=== PATIENT | female | born 1995 | race Caucasian/White ===

== ENCOUNTER 2019-01-23 14:46 | Emergency (ER) | payer OTHER ==
[~2019-01-23] VITALS: Ht 160 cm; Wt 74.8 kg
[~2019-01-23 14:46] MED LIST: BACTRIM DS TAB1 EACH PO; BACTROBAN NASAL1 GM NS; DEPO; DEPO-PROVE150 MG/1 M; HIBICLENS120 ML TP; HYDROCODONE-AP1 EAC6 PO; LANTUS100 UNIT/M SUBQ; NOVOLOG100 UNIT/1; NOVOLOG100 UNIT/1 SUBQ; PENICILLIN V P500 MG PO; TYLENOL325 MG PO
[2019-01-23 15:09] LABS: URINE BLOOD 2+ (Negative); URINE CLARITY CLEAR; URINE COLOR YELLOW; URINE GLUCOSE-RANDOM* 2+ (Negative); URINE KETONES 3+ (Negative); URINE LEUKOCYTES-REFLEX NEGATIVE (Negative); URINE NITRITE-REFLEX NEGATIVE (Negative); URINE PROTEIN (DIPSTICK) 1+ (Negative)
[2019-01-23 15:11] LABS: ICTOTEST (BILI CONFIRMATORY) Negative (Negative); URINE BILIRUBIN NEGATIVE (Negative)
[2019-01-23 15:20] LABS: CASTS None Seen /LPF (None Seen); SQUAMOUS 4-10 Moderate /LPF (0-3); URINE WBC-REFLEX 0-5 Rare /HPF (0-5)
[2019-01-23 15:21] LABS: BACTERIA-REFLEX None Seen /HPF (None Seen); CRYSTALS None Seen /LPF (None Seen); URINE RBC 0-2 Rare /HPF (0-2); YEAST-REFLEX Present (None Seen)
[2019-01-23 15:56] LABS: ABSOLUTE NEUTROPHILS 7.7 thou/uL (1.4-8.2); BASOPHILS 0.6 % (0.0-2.0); EOSINOPHILS 0.4 % (0.0-3.0); HEMATOCRIT 33.8 % (37.0-47.0); HEMOGLOBIN 11.1 gm/dL (12.0-15.0); LYMPHOCYTES 16.5 % (24.0-44.0); MCH 28.5 pg (26.0-34.0); MCHC 32.7 g/dL (28.0-37.0); MCV 87.1 fL (80.0-100.0); MONOCYTES 8.2 % (1.0-8.0); POLYS 74.3 % (36.0-66.0); RBC 3.88 mil/uL (4.20-5.00); RDW 14.4 % (10.5-14.5); WBC 10.4 thou/uL (4.0-11.0)
[2019-01-23 16:01] LABS: CALCIUM 8.6 mg/dL (8.5-10.1); CREATININE 0.6 mg/dL (0.6-1.0); POTASSIUM 3.5 mmol/L (3.5-5.1)
[2019-01-23 16:07] LABS: ALBUMIN 2.6 g/dL (3.4-5.0); TOTAL BILIRUBIN 0.7 mg/dL (<0.1-1.0); TOTAL PROTEIN 6.8 g/dL (6.4-8.2)
[2019-01-23 16:17] LABS: PLATELET COUNT 223 thou/uL (150-400); PLATELET ESTIMATE NORMAL
[2019-01-23] MEDS ORDERED: MOBIC15 MG PO (16:26)
[2019-01-23 16:48] VITALS: BP 122/82
--- NOTE | 2019-01-24 08:11 | EKG ---
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 : 1995 Requested By: Anjel Deshpande Order Number: [id number] MD: Marshall Rae Measurements Intervals [place] Rate: 107 P: 66 RI: 126 QRS: 59 QRSD: 85 T: 30 QT: 330 QTc: 441 Interpretive Statements Sinus tachycardia Otherwise normal tracing No previous ECG available for comparison Electronically Signed On 01-24-2019 8:10:56 CDT by Marshall Rae [email or web address] ��������������������������������������������� <ELECTRONICALLY SIGNED> ���������������������������������������� By: Marshall Rae MD, [facility] ��������������������������������������������� 01/24/19 0810 1549 1549 Marshall Rae MD, FACC /EPI
== END 2019-01-23 16:49 | disposition home or self-care (01) ==
LOC: ER 14:46
PROVIDERS: Emergency Medicine
DX: M79.10 Myalgia, unspecified site (principal); R11.2 Nausea with vomiting, unspecified; E11.9 Type 2 diabetes mellitus without complications; Z79.4 Long term (current) use of insulin; Z88.0 Allergy status to penicillin

== ENCOUNTER 2021-04-28 00:46 | Emergency (ER) | payer OTHER ==
[~2021-04-28] VITALS: Ht 160 cm; Wt 69.0 kg
[~2021-04-28 00:46] MED LIST changes: +MOBIC15 MG PO
[2021-04-28 02:15] LABS: ABSOLUTE NEUTROPHILS 6.4 thou/uL (1.4-8.2); BASOPHILS 0.8 % (0.0-2.0); EOSINOPHILS 0.5 % (0.0-3.0); HEMATOCRIT 40.3 % (37.0-47.0); HEMOGLOBIN 13.3 gm/dL (12.0-15.0); MCHC 33.1 g/dL (28.0-37.0); MCV 96.6 fL (80.0-100.0); MONOCYTES 8.7 % (1.0-8.0); PLATELET COUNT 445 thou/uL (150-400); RBC 4.17 mil/uL (4.20-5.00); RDW 14.5 % (10.5-14.5); WBC 10.3 thou/uL (4.0-11.0)
[2021-04-28 02:24] LABS: URINE BILIRUBIN NEGATIVE (Negative); URINE BLOOD NEGATIVE (Negative); URINE CLARITY CLEAR; URINE COLOR YELLOW; URINE GLUCOSE-RANDOM* 1+ (Negative); URINE KETONES TRACE (Negative); URINE LEUKOCYTES-REFLEX NEGATIVE (Negative); URINE NITRITE-REFLEX NEGATIVE (Negative); URINE PROTEIN (DIPSTICK) NEGATIVE (Negative); URINE UROBILINOGEN 0.2 E.U./dl (0.2-1.0)
[2021-04-28 02:30] LABS: CALCIUM 8.4 mg/dL (8.5-10.1); POTASSIUM 4.2 mmol/L (3.5-5.1)
[2021-04-28 02:41] LABS: ALBUMIN 3.2 g/dL (3.4-5.0); TOTAL BILIRUBIN 1.4 mg/dL (0.2-1.0); TOTAL PROTEIN 7.2 g/dL (6.4-8.2)
[2021-04-28 05:40] VITALS: BP 128/80
--- NOTE | 2021-04-28 07:16 | EKG ---
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[place] : 1995 Requested By: Krishna Lira Order Number: [id number] MD: Ronnie Del Rio Measurements Intervals [place] Rate: 134 P: 67 NM: 102 QRS: 77 QRSD: 80 T: 2 QT: 318 QTc: 475 Interpretive Statements Sinus tachycardia Probable left atrial enlargement Borderline T wave abnormalities Borderline prolonged QT interval Artifact in lead(s) I,II,aVF,V2 Compared to ECG 01/23/2019 15:49:42 T-wave abnormality now present Electronically Signed On 04-28-2021 7:16:36 CDT by Ronnie Del Rio [email or web address] <ELECTRONICALLY SIGNED> By: Ronnie Del Rio MD, [facility] 04/28/21 0716 005 Ronnie Del Rio MD, [facility] /EPI
== END 2021-04-28 05:50 | disposition home or self-care (01) ==
LOC: ER 00:46
PROVIDERS: Emergency Medicine
DX: R07.89 Other chest pain (principal); Z20.822 Contact with and (suspected) exposure to COVID-19; R74.01 Elevation of levels of liver transaminase levels; E10.8 Type 1 diabetes mellitus with unspecified complications; F12.90 Cannabis use, unspecified, uncomplicated; Z90.49 Acquired absence of other specified parts of digestive tract; Z79.4 Long term (current) use of insulin; Z88.0 Allergy status to penicillin